=== PATIENT | male | born 1980 | race Hispanic/Latino ===

== ENCOUNTER 2019-05-03 23:02 | Emergency (ER) | payer OTHER ==
[2019-05-03 23:39] LABS: BASOPHILS % (AUTO) 0.2 % (0.0-5.0); EOSINOPHILS % (AUTO) 0.5 % (0.0-8.0); HEMATOCRIT 44.5 % (42-54); LYMPHOCYTES % (AUTO) 11.2 % (21.0-51.0); MEAN CORPUSCULAR HEMOGLOBIN 33.9 pg (27.0-33.0); MEAN CORPUSCULAR VOLUME 94.3 fL (79-99); MONOCYTES % (AUTO) 6.3 % (3.0-13.0); NEUTROPHILS % (AUTO) 81.5 % (40.0-77.0); PLATELET COUNT (AUTO) 261 K/uL (130-400); RED BLOOD CELL COUNT(AUTO) 4.72 MIL/uL (4.50-6.20); RED CELL DISTRIBUTION WIDTH 11.9 % (11.0-15.5); WHITE BLOOD COUNT (AUTO) 12.6 K/uL (4.8-10.8)
[2019-05-03 23:51] LABS: CREATININE 0.8 mg/dL (0.5-1.5); POTASSIUM 3.6 mmol/L (3.5-5.1)
[2019-05-03 23:52] LABS: APPEARANCE,URINE Clear (CLEAR); BILIRUBIN,URINE Negative (NEGATIVE); COLOR,URINE Yellow (YELLOW); GLUCOSE, URINE (UA) Negative (NEGATIVE); KETONES,URINE Negative (NEGATIVE); LEUKOCYTE ESTERASE ,URINE Negative (NEGATIVE); NITRATE,URINE Negative (NEGATIVE); OCCULT BLOOD,URINE Trace (NEGATIVE); PH,URINE 5.5 (5.0-8.0); PROTEIN,URINE Trace mg/dL (NEGATIVE)
[2019-05-03 23:53] LABS: INR 0.86 (0.85-1.15); PARTIAL THROMBOPLASTIN TIME 26.8 SEC (26.3-35.5); PROTHROMBIN TIME 9.3 SEC (9.6-11.6)
[2019-05-03 23:55] LABS: ALBUMIN 3.8 g/dL (3.5-5.0); BILIRUBIN,TOTAL 0.4 mg/dL (0.2-1.0); TOTAL PROTEIN, SERUM 8.5 g/dL (6.0-8.3)
[2019-05-04] MEDS ORDERED: SODIUM CHLORIDE 0.9% 1000ML 1,000 ML IV ONE (00:01)
[2019-05-04 00:02] LABS: BACTERIA,URINE Rare /HPF (None Seen); RBC,URINE 0-1 /HPF (0-1); SQUAMOUS EPITHELIAL CELL,UR 0-2 /HPF (0-2); WBC,URINE 0-1 /HPF (0-1)
[2019-05-04] MEDS ORDERED: THIAMINE HCL 100 MG/ML 2ML VIAL ONE (00:03)
[2019-05-04] MEDS ORDERED: M.V.I. IV [ADULT] 10 ML VIAL IV ONE (00:04)
[2019-05-04] MEDS ORDERED: FOLIC ACID 5 MG/ML 10 ML VIAL ONE (00:08)
== END 2019-05-04 01:08 | disposition left against medical advice (07) ==
LOC: EDH 23:02
DX: R22.0 Localized swelling, mass and lump, head (principal); R51 Headache; R04.0 Epistaxis; F10.20 Alcohol dependence, uncomplicated; Z72.0 Tobacco use; Z86.19 Personal history of other infectious and parasitic diseases; W18.39XA Other fall on same level, initial encounter; Y93.89 Activity, other specified; Y92.89 Other specified places as the place of occurrence of the external cause; Y99.8 Other external cause status
CPT/HCPCS: 36415; 70450; 70486; 80053; 81001; 82550; 83605; 83690; 84484; 85025; 85610; 85730; 87804 ×2; 93005; 96365; 99285; G0480; J3411; J3490; J7030

== ENCOUNTER 2019-05-04 12:17 | Emergency (ER) | payer OTHER ==
[2019-05-04 13:07] LABS: BASOPHILS % (AUTO) 0.3 % (0.0-5.0); EOSINOPHILS % (AUTO) 0.5 % (0.0-8.0); HEMATOCRIT 44.4 % (42-54); LYMPHOCYTES % (AUTO) 13.3 % (21.0-51.0); MEAN CORPUSCULAR HEMOGLOBIN 32.6 pg (27.0-33.0); MEAN CORPUSCULAR HGB CONC 35.1 g/dL (32.0-36.0); MEAN CORPUSCULAR VOLUME 92.9 fL (79-99); MONOCYTES % (AUTO) 9.6 % (3.0-13.0); PLATELET COUNT (AUTO) 237 K/uL (130-400); RED BLOOD CELL COUNT(AUTO) 4.78 MIL/uL (4.50-6.20); RED CELL DISTRIBUTION WIDTH 11.6 % (11.0-15.5); WHITE BLOOD COUNT (AUTO) 8.8 K/uL (4.8-10.8)
[2019-05-04] MEDS ORDERED: KETOROLAC TROMETHAMINE 30MG/ML ONE (13:14)
[2019-05-04] MEDS ORDERED: CLINDAMYCIN 600 MG/D5% WATER 50 ML IV ONE (13:14)
[2019-05-04 13:16] LABS: CREATININE 0.9 mg/dL (0.5-1.5); POTASSIUM 3.6 mmol/L (3.5-5.1)
== END 2019-05-04 14:10 | disposition home or self-care (01) ==
LOC: EDH 12:17
DX: K02.9 Dental caries, unspecified (principal); L03.211 Cellulitis of face; R03.0 Elevated blood-pressure reading, without diagnosis of hypertension; Z72.0 Tobacco use
CPT/HCPCS: 36415; 80048; 85025; 96365; 96375; 99284; J1885; J3490

== ENCOUNTER 2021-07-20 17:38 | Emergency (ER) | payer OTHER ==
[~2021-07-20] VITALS: Ht 167.6 cm; Wt 68.0 kg
[2021-07-20 18:09] LABS: BASOPHILS % (AUTO) 0.6 % (0.0-5.0); EOSINOPHILS % (AUTO) 5.8 % (0.0-8.0); HEMATOCRIT 46.9 % (42-54); LYMPHOCYTES % (AUTO) 25.2 % (21.0-51.0); MEAN CORPUSCULAR HEMOGLOBIN 32.7 pg (27.0-33.0); MEAN CORPUSCULAR HGB CONC 34.8 g/dL (32.0-36.0); MEAN CORPUSCULAR VOLUME 94.2 fL (79-99); MONOCYTES % (AUTO) 9.3 % (3.0-13.0); NEUTROPHILS % (AUTO) 58.7 % (40.0-77.0); PLATELET COUNT (AUTO) 183 K/uL (130-400); RED BLOOD CELL COUNT(AUTO) 4.98 MIL/uL (4.50-6.20); RED CELL DISTRIBUTION WIDTH 11.9 % (11.0-15.5)
[2021-07-20 18:11] LABS: APPEARANCE,URINE Clear (CLEAR); BILIRUBIN,URINE Negative (NEGATIVE); COLOR,URINE Dark Yellow (YELLOW); GLUCOSE, URINE (UA) Negative (NEGATIVE); KETONES,URINE Trace mg/dL (NEGATIVE); LEUKOCYTE ESTERASE ,URINE Negative (NEGATIVE); NITRATE,URINE Negative (NEGATIVE); OCCULT BLOOD,URINE Negative (NEGATIVE); PH,URINE 6.5 (5.0-8.0); PROTEIN,URINE Trace mg/dL (NEGATIVE)
[2021-07-20 18:19] LABS: AMPHET/METH SCREEN,URINE NEGATIVE (NEGATIVE); BARBITURATE SCREEN, URINE NEGATIVE (NEGATIVE); BENZODIAZEPINES SCREEN,URINE NEGATIVE (NEGATIVE); CANNABINOID SCREEN,URINE POSITIVE (NEGATIVE); COCAINE SCREEN,URINE POSITIVE (NEGATIVE); OPIATE SCREEN,URINE NEGATIVE (NEGATIVE); PHENCYCLIDINE SCREEN,URINE NEGATIVE (NEGATIVE)
[2021-07-20 18:23] LABS: AMORPHOUS SEDIMENT,UR Trace /LPF (None Seen)
[2021-07-20 18:26] LABS: MUCUS,URINE Few LPF (None Seen); SPERM,URINE Rare /HPF (None Seen)
[2021-07-20 18:27] LABS: CALCIUM OXALATE CRYSTALS,UR Moderate /LPF (None Seen)
[2021-07-20 18:29] LABS: CARBON DIOXIDE 30 mmol/L (21-32); CHLORIDE 102 mmol/L (101-111); CREATININE 0.9 mg/dL (0.5-1.5); GLOMERULAR FILTR. RATE CALC 100 mL/min (>60); GLUCOSE,RANDOM 101 mg/dL (70-105); RBC,URINE 0-1 /HPF (0-1); SODIUM SERUM 138 mmol/L (136-145); UREA NITROGEN, BLOOD 12 mg/dL (7-18); WBC,URINE 0-1 /HPF (0-1)
[2021-07-20 18:30] LABS: BACTERIA,URINE Rare /HPF (None Seen); SQUAMOUS EPITHELIAL CELL,UR None Seen /HPF (0-2)
[2021-07-20 18:42] LABS: ALANINE AMINOTRANSFERASE 152 U/L (12-78); ALBUMIN 3.4 g/dL (3.5-5.0); ALCOHOL, BLOOD < 3 mg/dL (0-10); ASPARTATE AMINOTRANSFERASE 113 U/L (10-37); BILIRUBIN,TOTAL 0.7 mg/dL (0.2-1.0)
[2021-07-20 18:43] LABS: SALICYLATE < 2.8 mg/dL (2.8-20.0)
[2021-07-20 18:44] LABS: ACETAMINOPHEN < 1 mcg/mL (10-29); CREATINE KINASE, TOTAL 434 U/L (21-232)
[2021-07-20] MEDS ORDERED: 0.9%NACL 1000ML 1,000 ML IV ONE ×2 (20:30)
[2021-07-21 07:12] VITALS: BP 132/74
== END 2021-07-21 10:43 | disposition home or self-care (01) ==
LOC: EDH 17:38
DX: R45.851 Suicidal ideations (principal); F41.9 Anxiety disorder, unspecified; F32.A Depression, unspecified
CPT/HCPCS: 36415; 80053; 80305; 81001; 82550; 85025; 93005; 96360; 96361; 99284; G0481; J7030 ×2

== ENCOUNTER 2021-11-21 15:12 | Emergency (ER) | payer SELFPAY ==
[~2021-11-21] VITALS: Ht 165.1 cm; Wt 61.2 kg
[2021-11-21] MEDS ORDERED: BUPIVACAINE/PF 0.25% 30ML VIAL IJ ONE (15:52)
[2021-11-21] MEDS ORDERED: TRIAMCINOLONE ACETONIDE 40 MG/ML 1ML VIAL ONE (15:53)
[2021-11-21] MEDS ORDERED: KETOROLAC 60 MG VIAL (30MG/ML) IM ONE (16:00)
[2021-11-21] MEDS ORDERED: ORPHENADRINE CITRATE 30 MG/ML ML IM ONE (16:00)
[2021-11-21 16:57] VITALS: BP 132/82
[2021-11-21] MEDS ORDERED: ORPH100T4 PO (17:29)
[2021-11-21] MEDS ORDERED: IBUP-2071 PO (17:29)
[2022-01-31] MEDS ORDERED: IBUP-1493 PO (00:39)
== END 2022-07-14 11:40 | disposition short-term general hospital (02) ==
LOC: EDH 15:12
DX: M54.42 Lumbago with sciatica, left side (principal); Z79.1 Long term (current) use of non-steroidal anti-inflammatories (NSAID)
CPT/HCPCS: 99284; 20552; 96372 ×2; J3490; J3301; J1885; J2360

== ENCOUNTER 2022-01-30 19:52 | Emergency (ER) | payer OTHER ==
[~2022-01-30] VITALS: Ht 167.6 cm; Wt 78.5 kg
[~2022-01-30 19:52] MED LIST: IBUP-2071 PO; ORPH-43 PO
[2022-01-30 22:27] LABS: BASOPHILS % (AUTO) 0.5 % (0.0-5.0); EOSINOPHILS % (AUTO) 6.8 % (0.0-8.0); HEMATOCRIT 44.9 % (42-54); LYMPHOCYTES % (AUTO) 29.1 % (21.0-51.0); MEAN CORPUSCULAR HEMOGLOBIN 32.4 pg (27.0-33.0); MEAN CORPUSCULAR HGB CONC 34.7 g/dL (32.0-36.0); MEAN CORPUSCULAR VOLUME 93.3 fL (79-99); MONOCYTES % (AUTO) 9.6 % (3.0-13.0); NEUTROPHILS % (AUTO) 53.6 % (40.0-77.0); PLATELET COUNT (AUTO) 206 K/uL (130-400); RED BLOOD CELL COUNT(AUTO) 4.81 MIL/uL (4.50-6.20); WHITE BLOOD COUNT (AUTO) 7.8 K/uL (4.8-10.8)
[2022-01-30 22:35] LABS: CREATININE 0.9 mg/dL (0.5-1.5); POTASSIUM 3.7 mmol/L (3.5-5.1)
[2022-01-30 22:40] LABS: ALBUMIN 3.7 g/dL (3.5-5.0); TOTAL PROTEIN, SERUM 7.6 g/dL (6.0-8.3)
[2022-01-30 23:29] LABS: INR 0.95 (0.85-1.15); PROTHROMBIN TIME 10.4 SEC (9.6-11.6)
[2022-01-30 23:30] LABS: PARTIAL THROMBOPLASTIN TIME 26.3 SEC (26.3-35.5)
[2022-01-31 00:30] VITALS: BP 140/80
[2022-01-31] MEDS ORDERED: IBUP-1493 PO (00:39)
== END 2022-01-31 00:56 | disposition home or self-care (01) ==
LOC: EDH 19:52
DX: S00.12XA Contusion of left eyelid and periocular area, initial encounter (principal); H54.62 Unqualified visual loss, left eye, normal vision right eye; H11.32 Conjunctival hemorrhage, left eye; Z20.822 Contact with and (suspected) exposure to COVID-19; Z79.1 Long term (current) use of non-steroidal anti-inflammatories (NSAID); W18.39XA Other fall on same level, initial encounter; Y93.89 Activity, other specified; Y92.89 Other specified places as the place of occurrence of the external cause; Y99.8 Other external cause status
CPT/HCPCS: 36415; 70450; 70480; 70486; 72125; 80053; 85025; 85610; 85730; 87635; 99291

== ENCOUNTER 2022-07-12 19:54 | Emergency (ER) | payer OTHER ==
[~2022-07-12 19:54] MED LIST changes: +IBUP-1493 PO; -ORPH-43 PO; +ORPH100T4 PO
== END 2022-07-12 21:24 | disposition left against medical advice (07) ==
LOC: EDH 19:54
DX: R51.9 Headache, unspecified (principal); Z53.21 Procedure and treatment not carried out due to patient leaving prior to being seen by health care provider

== ENCOUNTER 2022-07-13 17:42 | Emergency (ER) | payer OTHER ==
[~2022-07-13] VITALS: Ht 167.6 cm; Wt 63.5 kg
[2022-07-13 18:58] LABS: BASOPHILS % (AUTO) 0.7 % (0.0-5.0); EOSINOPHILS % (AUTO) 6.6 % (0.0-8.0); HEMATOCRIT 43.5 % (42-54); LYMPHOCYTES % (AUTO) 30.6 % (21.0-51.0); MEAN CORPUSCULAR HEMOGLOBIN 33.2 pg (27.0-33.0); MEAN CORPUSCULAR HGB CONC 35.4 g/dL (32.0-36.0); MEAN CORPUSCULAR VOLUME 93.8 fL (79-99); MONOCYTES % (AUTO) 10.5 % (3.0-13.0); NEUTROPHILS % (AUTO) 51.2 % (40.0-77.0); PLATELET COUNT (AUTO) 198 K/uL (130-400); RED BLOOD CELL COUNT(AUTO) 4.64 MIL/uL (4.50-6.20); RED CELL DISTRIBUTION WIDTH 11.9 % (11.0-15.5); WHITE BLOOD COUNT (AUTO) 7.2 K/uL (4.8-10.8)
[2022-07-13 18:59] LABS: APPEARANCE,URINE CLEAR (CLEAR); BILIRUBIN,URINE NEGATIVE (NEGATIVE); COLOR,URINE YELLOW (YELLOW); GLUCOSE, URINE (UA) NEGATIVE (NEGATIVE); KETONES,URINE NEGATIVE (NEGATIVE); LEUKOCYTE ESTERASE ,URINE NEGATIVE Leu/uL (NEGATIVE); NITRATE,URINE NEGATIVE (NEGATIVE); OCCULT BLOOD,URINE NEGATIVE (NEGATIVE); PROTEIN,URINE 50 mg/dL (NEGATIVE)
[2022-07-13 19:03] LABS: MUCUS,URINE FEW LPF (None Seen); SQUAMOUS EPITHELIAL CELL,UR RARE /HPF (0-2); YEAST,URINE BUDDING RARE /HPF (None Seen)
[2022-07-13 19:06] LABS: AMPHET/METH SCREEN,URINE NEGATIVE (NEGATIVE); BARBITURATE SCREEN, URINE NEGATIVE (NEGATIVE); BENZODIAZEPINES SCREEN,URINE NEGATIVE (NEGATIVE); CANNABINOID SCREEN,URINE NEGATIVE (NEGATIVE); COCAINE SCREEN,URINE POSITIVE (NEGATIVE); OPIATE SCREEN,URINE NEGATIVE (NEGATIVE); PHENCYCLIDINE SCREEN,URINE NEGATIVE (NEGATIVE)
[2022-07-13 19:31] LABS: CARBON DIOXIDE 31 mmol/L (21-32); CHLORIDE 103 mmol/L (101-111); CREATININE 0.9 mg/dL (0.5-1.5); GLOMERULAR FILTR. RATE CALC 111 mL/min (>90); GLUCOSE,RANDOM 81 mg/dL (70-105); POTASSIUM 3.6 mmol/L (3.5-5.1); SODIUM SERUM 141 mmol/L (136-145); UREA NITROGEN, BLOOD 10 mg/dL (7-18)
[2022-07-13 19:39] LABS: ALANINE AMINOTRANSFERASE 174 U/L (12-78); ALBUMIN 3.9 g/dL (3.5-5.0); ASPARTATE AMINOTRANSFERASE 114 U/L (10-37); TOTAL PROTEIN, SERUM 7.2 g/dL (6.0-8.3)
[2022-07-13 19:40] LABS: SALICYLATE < 2.8 mg/dL (2.8-20.0)
[2022-07-13 19:41] LABS: ACETAMINOPHEN < 1 mcg/mL (10-29)
[2022-07-14 09:25] VITALS: BP 140/68
== END 2022-07-14 11:52 ==
LOC: EDH 17:42
DX: R45.851 Suicidal ideations (principal); Z79.899 Other long term (current) drug therapy
CPT/HCPCS: 99285; 80053; 80305; 85025; 36415; 81001; G0481

== ENCOUNTER 2023-05-12 12:44 | Emergency (ER) | payer BC, OTHER | END 2023-05-12 13:52 | disposition left against medical advice (07) | LOC: EDH 12:44 | DX: M79.89 Other specified soft tissue disorders (principal); Z53.21 Procedure and treatment not carried out due to patient leaving prior to being seen by health care provider ==

== ENCOUNTER 2024-10-21 16:18 | Emergency (ER) | payer SELFPAY ==
[~2024-10-21] VITALS: Ht 167.6 cm; Wt 74.8 kg
--- NOTE | 2024-10-21 16:27 | ERN ---
ED Note History of Present Illness Stated Complaint: LEFT SHOULDER PAIN, HEMATURIA Chief Complaint: Shoulder Injury/Pain Time Seen by MD: 16:19 Dictation: Patient is a 44-year-old male with two complaints 1st complaint is he is having non trauma left shoulder pain he has had for two weeks. He denies any surgeries falls chest pain back pain no referred pain. Second complaint is he said he has had intermittent hematuria for the same amount of time. No fever no chills no nausea vomiting no flank pain. States he is taking nothing for the pain, did not go see his primary care doctor because he has been too busy working. Allergies: Coded Allergies: No Known Drug Allergies (Unverified Allergy, Unknown, 05/04/19) Home Meds Active Scripts Ibuprofen (Motrin/Advil) 800 Mg Tab, 800 MG PO TID, #30 TAB Prov:KASSANDRA TREVIZO MD 01/31/22 Ibuprofen (Ibuprofen) 800 Mg Tablet, 800 MG PO Q8H PRN for PAIN, #30 TAB Prov:DINA QUARLES MD 11/21/21 Orphenadrine Citrate (Orphenadrine Citrate) 100 Mg Tablet.er, 100 MG PO BID for 10 Days, #20 TAB Prov:DINA QUARLES MD 11/21/21 Past Medical History Past Medical History: No Pertinent History Additional Past Medical Hx: HEPC Surgical History: None Social History: Negative RN Note Reviewed/Agreed w/PFSH: Yes Review of System Dictation CONSTITUTIONAL: Negative except for HPI HEAD/FACE: Negative except for HPI EENT: Negative except for HPI RESPIRATORY: Negative except for HPI GASTROINTESTINAL/ABDOMINAL: Negative except for HPI GENITOURINARY: Negative except for HPI painless hematuria MUSCULOSKELETAL: Negative except for HPI left shoulder pain non trauma INTEGUMENTARY: Negative except for HPI NEUROLOGICAL/PSYCH: Negative except for HPI HEMATOLOGIC/LYMPHATIC: Negative except for HPI All Systems Negative, Except as noted above. 13 point review of systems assessed and all negative except for above. Initial Vital Sign VS Vital Signs Date Time Temp Pulse Resp B/P (MAP) Pulse Ox O2 Delivery O2 Flow Rate FiO2 10/21/24 16:19 98.4 76 16 138/93 98 Room Air 0 10/21/24 20:13 21 Physical Exam Dictation Vital Signs reviewed General Appearance: Alert, oriented x 3, mild acute distress, well developed, nourished. Head and Face: non-traumatic. Eyes: PERRL, pink conjunctivas, eyelid no trauma, anterior chamber with arcus senilis. Ears: Pinnas intact and no signs of trauma or erythema ear canals clear and no discharge TM no erythema Nose: No discharge, no bleeding. Oropharynx: Mouth normal, tongue pink, pharynx clear,no erythema, tonsils no exudates, no abscesses noted, mucous membrane moist Neck: Supple, non-tender, no thyromegaly, no masses, no JVD, no bruits Breast:Deferred Chest:No tenderness, no crepitus, no paradoxical movement, no retractions Lungs:Clear, well-ventilated, symmetric, no rales, no wheezing, no rhonchi, no stridor, good breath sounds bilaterally Heart: Regular rate, regular rhythm, no murmur, no gallops Vascular: no peripheral edema, Abdomen: Soft, positive bowel sounds, nondistended, no guarding, nontender, no rebound, no masses no hepatomegaly, no splenomegaly, no Carrillo's sign, no hernias. Negative CVAT bilaterally Rectal: Deferred Genital: Deferred no pelvic pain Neurological: Normal speech, motor function intact, sensory function intact Musculoskeletal: Neck nontender, full range of motion, back nontender, full range of motion, Extremities: Tenderness to diffuse left shoulder with decreased range of motion secondary to pain. Distal neurovascular CMS intact. Skin: Color pink, dry, no turgor, no rash, no lacerations, no abrasions, no contusions. Lymphatic: Deferred Results (Laboratory/Radiology) Laboratory/Radiology Laboratory Tests Test 10/21/24 20:11 Urine Color YELLOW (YELLOW) Urine Appearance CLEAR (CLEAR) Urine pH 6.5 (5.0-8.0) Urine Specific [place] 1.032 (1.001-1.031) Urine Protein 20 mg/dL (NEGATIVE) H Urine Glucose (UA) NEGATIVE mg/dL (NEGATIVE) Urine Ketones 5 mg/dL (NEGATIVE) H Urine Occult Blood NEGATIVE (NEGATIVE) Urine Nitrate NEGATIVE (NEGATIVE) Urine Bilirubin 0.5 mg/dL (NEGATIVE) H Urine Urobilinogen 12 mg/dL (0.2-1.0) H Urine Leukocyte Esterase NEGATIVE [place]/uL Urine RBC 0-1 /HPF (0-1) Urine WBC 2-5 /HPF (0-1) H Urine Bacteria None /HPF (None Seen) lder pain COMPARISON None. TECHNIQUE 2 view left shoulder FINDINGS Bones: No acute fracture. No destructive osseous abnormality. Alignment: Normal. Joints: Normal Soft Tissues: Normal. IMPRESSION No acute bony findings or significant degenerative changes. /[facility] Labs Reviewed?: Yes ED Course ED Course Orders Procedure Category Date Status Time Urinalysis Profile LAB 10/21/24 Complete 16:22 Shoulder Comp 2+Vws Lt RAD 10/21/24 Resulted 16:22 Acetaminophen 500mg PHA 10/21/24 Complete Tab (Tylenol 500mg T 16:30 Acetaminophen 500mg PHA 10/21/24 Complete Tab (Tylenol 500mg T 21:00 Current Medications Medications (Trade) Dose Ordered Sig/[place] Route PRN Reason Start Time Stop Time Status Last Admin Dose Admin Acetaminophen (TYLenol 500MG TAB) 1,000 mg ONCE ONCE PO 10/21/24 16:30 10/21/24 16:31 DC Acetaminophen (TYLenol 500MG TAB) 1,000 mg ONCE ONCE PO 10/21/24 21:00 10/21/24 21:01 DC Vital Signs Date Time Temp Pulse Resp B/P (MAP) Pulse Ox O2 Delivery O2 Flow Rate FiO2 10/21/24 20:13 98.2 79 16 141/89 100 Room Air* 0 21 10/21/24 16:19 98.4 76 16 138/93 98 Room Air 0 Medical Decision Making [facility] 2109 medical decision-making based on x-ray of left shoulder and urinalysis for complain of hematuria. Urine is negative no microscopic blood Left shoulder x-ray negative Patient discharged home with ibuprofen told to see his primary care doctor for follow up DX & DISP Disposition: Discharge Departure Impression: Primary Impression: Left shoulder pain Additional Impression: Anxiety about health Condition: Stable Scripts Ibuprofen (Ibuprofen 800 mg Tab) 800 Mg Tab 800 MG PO Q8H PRN for fever or pain, #30 TAB 0 Refills Prov: HIRAL TRUJILLO NP 10/21/24 Referrals: SELF,REFERRAL (PCP) Time of Disposition: 21:13 I have reviewed the case, and I agree with, Diagnosis and Plan HIRAL TRUJILLO NP Oct 21, 2024 16:27
--- NOTE | 2024-10-21 17:44 | HMCIMG ---
CLINICAL INFORMATION Left shoulder pain COMPARISON None. TECHNIQUE 2 view left shoulder FINDINGS Bones: No acute fracture. No destructive osseous abnormality. Alignment: Normal. Joints: Normal Soft Tissues: Normal. IMPRESSION No acute bony findings or significant degenerative changes. /[place]
--- NOTE | 2024-10-21 19:38 | NUR ---
CALLED FOR PT IN LOBBY TO MOVE TO [facility] AREA. NO RESPONSE; PT NOT FOUND IN LOBBY.
[2024-10-21 20:13] VITALS: BP 141/89; PULSE 79; RESP 16; TEMP 98.3; O2SAT 100
[2024-10-21 20:37] LABS: APPEARANCE,URINE CLEAR (CLEAR); GLUCOSE, URINE (UA) NEGATIVE (NEGATIVE); LEUKOCYTE ESTERASE ,URINE NEGATIVE Leu/uL (NEGATIVE); NITRATE,URINE NEGATIVE (NEGATIVE); OCCULT BLOOD,URINE NEGATIVE (NEGATIVE)
[2024-10-21 20:39] LABS: ADD UA MICROSCOPIC YES
[2024-10-21] MEDS ORDERED: IBUP-2077 PO (21:14)
== END 2024-10-21 21:19 | disposition home or self-care (01) ==
LOC: EDH 16:18
DX: M25.512 Pain in left shoulder (principal); F41.9 Anxiety disorder, unspecified; Z79.1 Long term (current) use of non-steroidal anti-inflammatories (NSAID); Z86.19 Personal history of other infectious and parasitic diseases
CPT/HCPCS: 73030; 81001; 99284